=== PATIENT | male | born 1940 | race Caucasian/White ===

== ENCOUNTER 2023-03-25 11:48 | Emergency (ER) | payer MEDICARE, MEDICAID, SELFPAY ==
[2023-03-25 12:35] VITALS: BP 126/67; PULSE 72; RESP 16; TEMP 36.2; O2SAT 98
[2023-03-25 13:01] VITALS: BP 136/71; PULSE 69; RESP 17; O2SAT 98
[2023-03-25] MEDS: SODIUM CHLORIDE 0.9% IV 1,000 ML 999 ML IV CONT (13:02)
[2023-03-25 13:12] LABS: Basophils Percent Auto 0.4 % (0.2-1.2); Eosinophils Absolute Auto 0.1 K/mm3 (0-0.3); Eosinophils Percent Auto 0.7 % (0-4.4); Hematocrit 40.7 % (42.0-52.0); Hemoglobin 13.3 g/dL (14.0-18.0); Immature Granulocyte Absolute 0.05 K/mm3 (0.00-0.031); Immature Granulocyte Percent A 0.7 % (0-0.5); Lymphocytes Absolute Auto 1.73 K/mm3 (0.9-3.2); Lymphocytes Percent Auto 23.2 % (18.3-44.2); Mean Corpuscular HGB Conc 32.7 g/dl (32-36); Mean Corpuscular Hemoglobin 31.8 pg (26-34); Mean Corpuscular Volume 97.4 fl (80-100); Mean Platelet Volume 10.3 fl (7.4-10.4); Monocytes Absolute Auto 0.6 K/mm3 (0.1-0.6); Monocytes Percent Auto 7.6 % (2.6-8.5); Neutrophils Percent Auto 67.4 % (45.5-73.1); Platelet Count Result 324 k/mm3 (150-375); Red Blood Count 4.18 M/mm3 (4.6-6.20); Red Cell Distribution Width 13.9 % (11.5-14.5); White Blood Count 7.5 K/mm3 (4.5-10.0)
--- NOTE | 2023-03-25 13:13 | ED.ABDPAIN ---
HPI - Abdominal Pain General Chief Complaint: Abdominal Pain Stated Complaint: abdominal pain, vomiting, diarrhea Time Seen by Provider: 03/25/23 12:43 History of Present Illness HPI narrative: Patient is an 83-year-old male who presents ER with diarrhea. reports its been almost daily over the last year. Reports it is worsened over the last week. Patient has 3 more loose stools today. No blood. Has history of pelvic radiation for prostate cancer. 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 He has been on pancrelipase for the last year. Patient has had no fevers or chills or sweats. No loss of consciousness. Patient's history is limited due to the fact that she has dementia. Patient has not been on any recent antibiotics. Related Data Allergies Allergy/AdvReac Type Severity Reaction Status Date / Time No Known Allergies Allergy Verified 03/25/23 13:02 Review of Systems Review of Systems: ROS unobtainable: Yes unobtainable due to mental status PMFSH Past Medical History Medical History (Updated 03/25/23 @ 15:03 by Keo Salgado MD) Coronary artery disease Dementia Hyperlipidemia Hypertension Mesenteric vein thrombosis Pancreatitis Prostate cancer Surgical History Surgical History (Updated 03/25/23 @ 13:15 by Keo Salgado MD) History of percutaneous coronary intervention Exam Narrative: GENERAL: Well-appearing, well-nourished, and in no acute distress. HEAD: Normocephalic, atraumatic. EYES: PERRL and EOMI. ENT: Mucous membranes moist. CHEST: Clear to auscultation. No respiratory distress. HEART: Regular rate and rhythm. Normal peripheral pulses. ABDOMEN: Soft, nontender, nondistended, normal active bowel sounds. EXTREMITIES: Normal range of motion. No edema. SKIN: Warm, dry, no rash. NEURO: Alert and oriented x2. PSYCH: Normal mood and affect. Course Course Emergency Course: Patient resting comfortably. Patient and informed of lab results. It is felt that patient is likely having diarrhea related to his pancrelipase. He has no focal tenderness to the abdomen. Patient's felt he was becoming increasingly agitated related to his dementia and sitting in his room. She is concerned he may pull his lines and so she has had his IV removed prior to me talking to them about the results. After discussing the results and treatment plan and they verbalized understanding. Basic cardiac patient came into the ER and the patients decided to walk him out without discharge paperwork. Patient's is concerned nursing staff needs additional education about agitation in demented patients. Vital Signs Vital signs: Vital Signs Temperature 97.1 F L 03/25/23 12:35 Pulse Rate 72 03/25/23 12:35 Respiratory Rate 16 03/25/23 12:35 Blood Pressure 126/67 03/25/23 12:35 Pulse Oximetry 98 03/25/23 12:35 Oxygen Delivery Room Air 03/25/23 12:35 Temperature 98.2 F 03/25/23 14:16 Pulse Rate 63 03/25/23 14:16 Respiratory Rate 12 03/25/23 14:16 Blood Pressure 168/88 H 03/25/23 14:16 Pulse Oximetry 100 03/25/23 14:16 Oxygen Delivery Room Air 03/25/23 12:35 MDM - Abdominal Pain Lab Data 03/25/23 13:04 03/25/23 13:04 Labs: Lab Results 03/25/23 Range/Units 13:04 WBC 7.5 (4.5-10.0) K/mm3 RBC 4.18 L (4.6-6.20) M/mm3 Hgb 13.3 L (14.0-18.0) g/dL Hct 40.7 L (42.0-52.0) % MCV 97.4 (80-100) fl MCH 31.8 (26-34) pg MCHC 32.7 (32-36) g/dl RDW 13.9 (11.5-14.5) % Plt Count 324 (150-375) k/mm3 MPV 10.3 (7.4-10.4) fl Immature Gran % (Auto) 0.7 H (0-0.5) % Neut % (Auto) 67.4 (45.5-73.1) % Lymph % (Auto) 23.2 (18.3-44.2) % [place] % (Auto) 7.6 (2.6-8.5) % Eos % (Auto) 0.7 (0-4.4) % Baso % (Auto) 0.4 (0.2-1.2) % Lymph # (Auto) 1.73 (0.9-3.2) K/mm3 [place] # (Auto) 0.6 (0.1-0.6) K/mm3 Eos # (Auto) 0.1 (0-0.3) K/mm3 Baso # (Auto)
[2023-03-25 13:29] LABS: Alanine Aminotransferase 18 U/L (6-50); Alkaline Phosphatase 24 U/L (38-126); Anion Gap 10 mmol/L (8-16); Aspartate Amino Transferase 33 U/L (17-59); Bilirubin,Total 0.6 mg/dL (0.2-1.3); Blood Urea Nitrogen 17 mg/dL (9-20); Calcium 9.2 mg/dL (8.4-10.2); Carbon Dioxide 22 mmol/L (22-30); Chloride 110 mmol/L (98-107); Estimated CRCL calculation 39 ml/min; Estimated Glomerular Filt Rate 58; Glucose 116 mg/dL (65-110); Lipase 68 U/L (23-300); Potassium 4.3 mmol/L (3.4-5.0); Sodium 142 mmol/L (137-145)
[2023-03-25 14:15] VITALS: PULSE 62; RESP 15; O2SAT 99
[2023-03-25 14:16] VITALS: BP 168/88; PULSE 63; RESP 12; TEMP 36.8; O2SAT 100
--- NOTE | 2023-03-25 14:51 | PC.NURSE ---
pt's at desk demanding ERP tell her what's going. informed ERP with critical pt and upset pointing her finger in my face and nurse TM face telling staff pt agitated and they need to go. Pt does not appear agitated, pt resting on cot, A/O x 3. Charge nurse informed of 's behavior
[2023-03-25 15:19] VITALS: TEMP 36.3
== END 2023-03-25 15:20 | disposition home or self-care (01) ==
PROVIDERS: Emergency Provider Emergency Medicine; PCP Internal Medicine
DX: K52.1 Toxic gastroenteritis and colitis (principal); T47.5X5A Adverse effect of digestants, initial encounter; F03.90 Unspecified dementia, unspecified severity, without behavioral disturbance, psychotic disturbance, mood disturbance, and anxiety; I25.10 Atherosclerotic heart disease of native coronary artery without angina pectoris; I10 Essential (primary) hypertension; E78.5 Hyperlipidemia, unspecified; Z85.46 Personal history of malignant neoplasm of prostate
CPT/HCPCS: 36415; 80053; 83690; 85025; 96360; 99283; J7030